=== PATIENT | female | born 2005 | race Caucasian/White ===

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

== ENCOUNTER 2025-02-10 11:04 | Day surgery (SDC) | payer OTHER, SELFPAY ==
[2025-02-10] VITALS (9 sets, daily range): BP systolic 91–111; BP diastolic 55–76; PULSE 52–90; RESP 14–16; TEMP 36.4–36.6; O2SAT 96–100; BMI 25.0
[2025-02-10] MEDS: LACTATED RINGERS 500 ML 500 ML 100 ML IV (11:15)
[2025-02-10 11:22] LABS: Ur HCG Qualitative* Negative (Negative)
[2025-02-10] MEDS: SODIUM CHLORIDE 0.9 % (FLUSH) 10 ML SYRINGE IVF (11:29)
[2025-02-10] MEDS: CIPROFLOX/DEXAMETH OTIC (nc) 4 DROP EAR-BOTH (12:14)
--- NOTE | 2025-02-10 12:20 | W.PM.ENTPROC ---
Procedure Note Date of procedure: 02/10/25 Procedure: Preop diagnosis bilateral eustachian tube dysfunction, possible perforation left tympanic membrane, flat right tympanogram, recurrent bilateral acute otitis media Postoperative diagnosis same plus large central perforation left tympanic membrane Procedure inspect left ear under anesthesia, right myringotomy and permanent tube placement Under general trach anesthesia patient was prepped draped usual fashion. Left ear canal was inspected and although there was a negative pressure tympanogram there were there appeared to be a very large central perforation. This was left intact. On the right side the tympanic membrane was retracted I placed a performed a myringotomy anteriorly and a T-tube was trimmed and placed without difficulty. Ciprodex drops were placed. The patient procedure well was taken recovery in satisfactory condition. Blood loss was less than 5 mL. Surgeon: Humble Francisco MD
--- NOTE | 2025-02-10 12:40 | P.ANES_ITS ---
Anesthesia Charges Start Date/Time Anesthesia Start Date: 02/10/25 Anesthesia Start Time: 11:58 Stop Date/Time Anesthesia Stop Date: 02/10/25 Anesthesia Stop Time: 12:36 Coding CPT Codes CPT Codes: ANESTH EAR SURGERY - 27827 ([id number]) QK - CAR PARKER 2-4 CNCRNT ANES PROC, QX - PAPER CUTTER SVC W/ MD MED DIRECTION, P1 - NORMAL HEALTHY PATIENT
--- NOTE | 2025-02-10 12:40 | W.ANESCHARGE ---
Anesthesia Charges Start Date/Time Anesthesia Start Date: 02/10/25 Anesthesia Start Time: 11:58 Stop Date/Time Anesthesia Stop Date: 02/10/25 Anesthesia Stop Time: 12:36 Coding CPT Codes CPT Codes: ANESTH EAR SURGERY - 84019 ([id number]) QK - BATTERY PLATE ASSEMBLER 2-4 CNCRNT ANES PROC, QX - ESCORT VEHICLE DRIVER SVC W/ MD MED DIRECTION, P1 - NORMAL HEALTHY PATIENT
--- NOTE | 2025-02-10 12:49 | P.ANES_ITS ---
Anesthesia Charges Start Date/Time Anesthesia Start Date: 02/10/25 Anesthesia Start Time: 11:58 Stop Date/Time Anesthesia Stop Date: 02/10/25 Anesthesia Stop Time: 12:36 Coding CPT Codes CPT Codes: ANESTH EAR SURGERY - 31176 ([id number]) P2 - PATIENT W/MILD SYST DISEASE, QK - TELEVISION WRITER 2-4 CNCRNT ANES PROC, QX - SPUDDER SVC W/ MD MED DIRECTION
--- NOTE | 2025-02-10 12:49 | W.ANESCHARGE ---
Anesthesia Charges Start Date/Time Anesthesia Start Date: 02/10/25 Anesthesia Start Time: 11:58 Stop Date/Time Anesthesia Stop Date: 02/10/25 Anesthesia Stop Time: 12:36 Coding CPT Codes CPT Codes: ANESTH EAR SURGERY - 14884 ([id number]) P2 - PATIENT W/MILD SYST DISEASE, QK - SHOWROOM SALES ASSISTANT 2-4 CNCRNT ANES PROC, QX - RETORT KILN BURNER SVC W/ MD MED DIRECTION
[2025-02-10] MEDS: ACETAMINOPHEN 325 MG TABLET PO (13:19)
[2025-02-10] MEDS: IBUPROFEN 200 MG TABLET PO (13:19)
== END 2025-02-10 13:37 | disposition home or self-care (01) ==
LOC: OR 11:07
PROVIDERS: Anesthesiology; PCP Family Medicine; Visit Provider Otolaryngology
PROC: (CPT 69420; principal; 2025-02-10 12:15)
DX: H65.06 Acute serous otitis media, recurrent, bilateral (principal); H90.0 Conductive hearing loss, bilateral; H69.83 Other specified disorders of Eustachian tube, bilateral; H72.92 Unspecified perforation of tympanic membrane, left ear
CPT/HCPCS: 69436; 00120; 81025; A9270; J0330; J1100; J2250; J2405; J2704; J3010; J7120